=== PATIENT | male | born 1945 | race Caucasian/White ===

== ENCOUNTER → 2019-11-14 | Outpatient (CLI) | payer MEDICARE, OTHER | LOC: M.MRI 13:06 | DX: S83.242A Other tear of medial meniscus, current injury, left knee, initial encounter (principal); M17.12 Unilateral primary osteoarthritis, left knee; Z96.652 Presence of left artificial knee joint; X58.XXXA Exposure to other specified factors, initial encounter; Y93.89 Activity, other specified; Y92.89 Other specified places as the place of occurrence of the external cause; Y99.8 Other external cause status ==

== ENCOUNTER 2019-12-18 07:29 | Inpatient (IN) | payer MEDICARE, OTHER ==
[2019-12-06 09:07] LABS: HEMATOCRIT 41.6 % (42.0-52.0); HEMOGLOBIN 14.4 gm/dL (14.0-18.0); MCH 31.9 pg (26.0-34.0); MCHC 34.6 g/dL (28.0-37.0); MCV 92.2 fL (80.0-100.0); MPV 7.4 fl. (7.2-11.1); RBC 4.51 mil/uL (4.50-6.00); RDW-CV 13.6 % (10.5-14.5); WBC 7.5 thou/uL (4.0-11.0)
[2019-12-06 09:11] LABS: URINE BILIRUBIN NEGATIVE (Negative); URINE BLOOD NEGATIVE (Negative); URINE CLARITY CLEAR; URINE COLOR YELLOW; URINE GLUCOSE-RANDOM NEGATIVE (Negative); URINE KETONES NEGATIVE (Negative); URINE LEUKOCYTES-REFLEX NEGATIVE (Negative); URINE NITRITE-REFLEX NEGATIVE (Negative); URINE PROTEIN NEGATIVE (Negative); URINE SPECIFIC GRAVITY >= 1.030 (1.005-1.030); URINE UROBILINOGEN 0.2 E.U./dl (0.2-1.0)
[2019-12-06 09:18] LABS: INR 1.1; PROTIME 10.9 Seconds (9.20-11.50)
[2019-12-06 09:24] LABS: ALBUMIN 3.5 g/dL (3.4-5.0); CREATININE 1.2 mg/dL (0.6-1.3); POTASSIUM 4.2 mmol/L (3.5-5.1); TOTAL BILIRUBIN 0.5 mg/dL (<0.1-1.0)
--- NOTE | 2019-12-06 13:47 | EKG ---
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
[~2019-12-18] VITALS: Ht 180.3 cm; Wt 113.9 kg
[~2019-12-18 07:29] MED LIST: COZAAR 25 MG TA25 M1 PO; DILTIAZEM 24HR240 M1 PO; ELIQUIS5 MG PO; FISH OIL OMEGA1 EAC2 PO; FLECAINIDE ACE150 MG PO; FLOMAX0.4 MG PO; GLUCOPHAGE1000 MG PO; LASIX 20 MG TAB20 MG PO; NITROSTAT0.4 MG SUBLING; PRESERVISION A1 EAC2 PO; SAW PALMETTO160 MG PO; SYNTHROID100 MC1 PO; TYLENOL325 MG PO
[2019-12-18 11:00] VITALS: BP 119/58
--- NOTE | 2019-12-18 11:15 | NUR ---
Noted that pt has scratch on outer Left knee area. This area was shown to Dr. Rodriguez and pt had called Dr office when this happened and was treated with Antibiotic ointment. No further orders given at this time. Pt is positive MRSA of nares and was started on Vanc 1.5mg for surg. Pt is also diabetic with blood sugar of 180 at this time.
[2019-12-18 16:10] VITALS: BP 128/79
[2019-12-18 19:40] VITALS: BP 123/68
--- NOTE | 2019-12-18 19:40 | NUR ---
PT ARRIVED TO ROOM 202 AT APPROX 1610 FROM SURGERY. PT A/O X4, C/O PAIN IN LEFT KNEE, DID NOT WANT PAIN MEDS BUT DID TRY SOME AFTER NERVE BLOCK WEARS OFF. PT ON CPM MACHINE THIS EVENING. ISOLATION FOR HX MRSA NARES. ADMISSION HX AND ASSESMENT DONE CHARTED. REPORT GIVEN TO GEORGINA POWELL
[2019-12-18 20:22] LABS: ALBUMIN 3.3 g/dL (3.4-5.0); CREATININE 1.3 mg/dL (0.6-1.3); MAGNESIUM 1.6 mg/dL (1.8-2.4); PHOSPHORUS* 3.3 mg/dL (2.5-4.9); POTASSIUM 5.1 mmol/L (3.5-5.1); TOTAL BILIRUBIN 0.7 mg/dL (<0.1-1.0); TOTAL PROTEIN 6.4 g/dL (6.4-8.2)
[2019-12-19] VITALS: BP 105/62
[2019-12-19 04:00] VITALS: BP 106/58
--- NOTE | 2019-12-19 04:43 | NUR ---
PATIENT PROGRESSING TOWARDS GOALS: PAIN MANAGED WITH RELAXATION, POLAR PACK, AND MEDICATION. PATIENT TOLERATED CPM FOR APPROX 45 MIN. PATIENT ABLE TO SIT ON SIDE OF BED TO USE URINAL, TOLERATING WELL. PATIENT ON HOME CPAP WHILE SLEEPING, ON CONTINUOUS PULSE OXIMETRY FOR POST OP. DRESSING TO LEFT KNEE REMAINS C/D/I. HEMOVAC IN PLACE WITH SANGUINOUS DRAINAGE. OUTPUT CHARTED. CALL LIGHT WITHIN REACH
[2019-12-19 05:38] LABS: HEMATOCRIT 35.9 % (42.0-52.0); HEMOGLOBIN 12.5 gm/dL (14.0-18.0); MCH 31.9 pg (26.0-34.0); MCV 91.3 fL (80.0-100.0); MPV 8.4 fl. (7.2-11.1); NUCLEATED RBCS 0 /100WBC; PLATELET COUNT* 167 thou/uL (150-400); RBC 3.93 mil/uL (4.50-6.00); RDW-CV 13.3 % (10.5-14.5); WBC 13.4 thou/uL (4.0-11.0)
[2019-12-19 06:00] LABS: CALCIUM 8.3 mg/dL (8.5-10.1); POTASSIUM 4.5 mmol/L (3.5-5.1); TOTAL BILIRUBIN 0.6 mg/dL (<0.1-1.0)
[2019-12-19 06:20] LABS: ABSOLUTE LYMPHOCYTES 1.3 thou/uL (0.8-5.3); ABSOLUTE MONOCYTES 0.5 thou/uL (0.0-1.2); ABSOLUTE NEUTROPHILS 11.5 thou/uL (1.6-8.1); ANISOCYTOSIS 1+; PLATELET ESTIMATE ADEQUATE; POIKILOCYTOSIS 1+
[2019-12-19 07:30] VITALS: BP 115/61
--- NOTE | 2019-12-19 08:12 | CON ---
[address] [address] CONSULTATION Name: JEAN-PAUL MIRANDA Room: [address] IN .R.#: [id number] Admission: 12/18/19 Attend Phys: Butch Hess Discharge: Date of : 49 Report #: [id number] THIS REPORT FOR: //name// CC: MD Enrique Hayes II, MD DATE OF SERVICE: 12/18/2019 INDICATION: Recurrent atrial arrhythmias. HISTORY OF PRESENT ILLNESS: The patient is a 73-year-old gentleman, who was brought electively to the hospital for knee arthroplasty. Perioperatively, he had some atrial tachycardia that appears to be a slow atrial flutter. He reports a history of atrial fibrillation with some type of ablation within the past year. He is chronically anticoagulated with Eliquis. This medication was held 2 days prior to surgery. He states that he takes flecainide twice a day and diltiazem at nighttime. He reports taking these medications perioperatively. During surgery and post-surgery, he was given boluses of IV metoprolol and ultimately placed on a diltiazem drip. At present, his rhythm appears stable and rate controlled. He is not having any symptoms related to this. He denies any chest pain or shortness of breath. He reports a remote history of cardiac catheterization without intervention. PAST MEDICAL HISTORY: 1. Paroxysmal atrial arrhythmias, presumably atrial fibrillation, status post ablation. 2. Type 2 diabetes. 3. Hypothyroidism. 4. Hypertension. 5. Hypercoagulable state due to atrial arrhythmias. 6. Chronic anticoagulation. 7. History of angina. PAST SURGICAL HISTORY: 1. Knee arthroscopy. 2. Left elbow cellulitis with status post I and D. 3. Inguinal hernia repair. 4. Hemorrhoidectomy. 5. Cardiac ablation. FAMILY HISTORY: [place] [address] CONSULTATION Name: JEAN-PAUL MIRANDA Room: [address]#: [id number] Admission: 12/18/19 Attend Phys: Butch Hess Discharge: Date of : 49 Report #: [id number] SOCIAL HISTORY: The patient quit smoking 10 years ago. Drinks alcohol occasionally. PHYSICAL EXAMINATION: VITAL SIGNS: Presently stable. Blood pressure 119/58, heart rate in the 60s and regular. GENERAL: This is a pleasant gentleman, in no distress. Mood and affect appropriate. HEENT: Head is normocephalic, atraumatic. Extraocular muscles intact. Mucous membranes moist. NECK: Shows no jugular venous distention. There are no carotid bruits. CARDIAC: Reveals a regular rhythm. I do not appreciate gallop or murmur. CHEST: Reveals lung johnson to be clear anteriorly. ABDOMEN: Reveals normal bowel sounds. The abdomen is soft and nontender. EXTREMITIES: Shows the right lower extremity to be wrapped. Left lower extremity without edema. ICD is in place. IMPRESSION AND RECOMMENDATIONS: 1. Paroxysmal atrial arrhythmias. I will continue the patient's home medications of diltiazem and flecainide. Gradually wean off diltiazem drip. I doubt he will need other medications at this time. Resume anticoagulation when felt to be safe postoperatively. 2. Hypertension. Blood pressure adequately controlled. 3. Diabetes per primary physician. 4. Hypercoagulable state secondary to atrial arrhythmias. We will resume Eliquis when felt to be safe from a surgical standpoint. <ELECTRONICALLY SIGNED> By: Don Silva MD, FACC 12/19/19 0812 1612 0026Micjo ann Silva MD, FACC /nt
--- NOTE | 2019-12-19 13:35 | NUR ---
I have reviewed the documentation by EMILIANA MADISON from 12/19/19 to 12/19/19 and I concur with it. FLORENCIO ARNDT
--- NOTE | 2019-12-19 13:38 | NUR ---
Pt is A&O. Resides at home with . Active and independent. No DME. No hx of HH or SNF. Goal is home at [facility]. Following.
--- NOTE | 2019-12-19 14:52 | NUR ---
RECIEVED O.T. EVAL AND TX ORDER. WILL DEFER TO P.T. AT THIS TIME. PLEASE ORDER FURTHER O.T. SERVICES IF NEEDED.
[2019-12-19] MEDS ORDERED: PERCOCET 5-3251 EACH PO (15:36)
[2019-12-19 15:40] VITALS: BP 115/61
[2019-12-19 15:45] VITALS: BP 115/61
--- NOTE | 2019-12-19 16:44 | NUR ---
PATIENT REQUESTING HOME PHYSICAL THERAPY AT DISCHARGE. DC ORDERS FACED TO [facility] AND CONTACT INFORMATION GIVEN TO THE PATIENT. IV DISCONTINUED. CHIEF JUVENILE PROBATION OFFICER REMOVED AND RETURNED TO NURSE'S DESK. PATIENT EDUCATED ON F/U APPOINTMENTS AND HOME MEDICATIONS. NEW SCRIPT GIVEN FOR PAIN MEDICINE AND MED INFO SHEETS. ALL HIS BELONGINGS PACKED AND LEAVING WITH THE PATIENT.
--- NOTE | 2019-12-19 17:14 | NUR ---
I have reviewed the documentation by EMILIANA MADISON from 12/19/19 to 12/19/19 and I concur with it. FLORENCIO ARNDT
--- NOTE | 2019-12-19 22:05 | OP ---
[facility] [address] [place] [address] OPERATIVE REPORT Name: JEAN-PAUL MIRANDA Room: [address] IN .R.#: [id number] Admission: 12/18/19 Attend Phys: Butch Hess Discharge: 12/19/19 Date of : 49 Report #: [id number] THIS REPORT FOR: //name// CC: North Ramirez DATE OF SERVICE: 12/18/2019 PREOPERATIVE DIAGNOSIS: Left knee osteoarthritis. POSTOPERATIVE DIAGNOSIS: Left knee osteoarthritis. PROCEDURE: Left total knee arthroplasty. SURGEON: North Rodriguez II, DO. SOURCING INTERN: ALEXANDER Macdonald. ANESTHESIA: General endotracheal. ESTIMATED BLOOD LOSS: 50 mL. ANTIBIOTICS: Vancomycin preoperatively. DRAINS: Medium Hemovac. COMPLICATIONS: None. CONDITION OF THE PATIENT: Stable to recovery room. IMPLANTS: Listed in operative record and progress note. BRIEF HISTORY: The patient was seen in the preoperative area. Preoperative H and P was performed. Site was marked, questions were answered. The patient did have a small area over his lateral knee, which was an abrasion from 1 week prior, which was healing. The patient was discussed due to this abrasion surgery may be postponed to allow this to heal completely. The patient declined this vehemently and stated he would like to proceed with surgery. He assumed all risks and wished to proceed with surgery at this time. The patient was warned of all risks. OPERATIVE PROCEDURE: The patient was taken to the operative suite and placed supine on the operating table in appropriate anesthesia. A well-padded tourniquet applied to upper thigh, which was inflated to 300 mmHg after gravity exsanguination. The operative knee was sterilely prepped and draped. Surgery [place] [id number] OPERATIVE REPORT Name: JEAN-PAUL MIRANDA Aman Room: [address] IN [facility].#: [id number] Admission: 12/18/19 Attend Phys: Butch Hess Discharge: 12/19/19 Date of : 49 Report #: [id number] began by midline incision. This was carried down to the subcutaneous tissues. A medial parapatellar arthrotomy was performed and carried down to bone. The patella was then everted and excess soft tissue removed from around the femur. Femoral cutting block was then applied, checked with a drop konstantin for rotational alignment in appropriate position and appropriate cuts were made. A 4-in-1 cutting block was then applied, checked for rotational alignment, pinned in appropriate cuts were made. The tibia was exposed. Excess meniscus was removed. Retractor was placed on collateral ligaments. The tibial guide block was then applied, pinned in appropriate position, checked with a drop konstantin for rotational alignment and slope and appropriate cut was made. The tibial bone was removed. Tibial base plate was then applied, checked with drop and rotational alignment. Femur was then applied and box cut was reamed. This was then trialed with appropriate spacer, which showed excellent fit and fill, and excellent stability of the knee through all range of motion. The patella was reamed in appropriate fashion and sized to appropriate size. Three peg holes were drilled and it was then trialed and showed excellent flexion, extension, excellent tracking of the patella within the groove. These trials were removed. The tibia was punched in appropriate fashion. Bone ends were cleansed with Pulsavac irrigation and cement was mixed and applied to final implants. These were then malleted into position and held the knee in extension and compressed to allow cement to cure. After it cured, excess was removed using a [place] and osteotome. Wound was then copiously irrigated and the final spacer was then malleted into position. Tourniquet was deflated. Hemostasis was maintained with electrocautery. Pain cocktail was injected. PRP gel was sprayed throughout the internal aspects of the knee. Medium Hemovac drain was applied. Capsule was closed with #2 FiberWire and #1 Vicryl in [id number] fashion. Skin was closed with 2-0 Vicryl and running 3-0 Monocryl. Dermabond and sterile dressing applied. Bret wrap and PolarCare applied. The patient transported to recovery room in stable condition. Counts were correct throughout the procedure. <ELECTRONICALLY SIGNED> By: North Rodriguez II, DO 12/19/19 2205 0727 [id number] Rodriguez II, DO /nt
== END 2019-12-19 17:38 | disposition home health service (06) | DRG 470 ==
LOC: M.PRE 07:29 → M.2W 10:10 → M.TBA 10:10 → M.PRE 13:17 → M.2W 16:03
PROVIDERS: Orthopaedic Surgery; ADMIT Internal Medicine
PROC: 0SRD0J9 Replacement of Left Knee Joint with Synthetic Substitute, Cemented, Open Approach (ICD-10-PCS; principal; 2019-12-18)
DX: M17.12 Unilateral primary osteoarthritis, left knee (principal); D68.59 Other primary thrombophilia; I48.0 Paroxysmal atrial fibrillation; E11.9 Type 2 diabetes mellitus without complications; E03.9 Hypothyroidism, unspecified; I10 Essential (primary) hypertension; N40.0 Benign prostatic hyperplasia without lower urinary tract symptoms; Z79.01 Long term (current) use of anticoagulants; Z79.84 Long term (current) use of oral hypoglycemic drugs; Z79.899 Other long term (current) drug therapy